=== PATIENT | male | born 1965 | race Two or more races ===

== ENCOUNTER 2024-06-17 12:30 | Inpatient (IN) | payer BC ==
[~2024-06-17] VITALS: Ht 188 cm; Wt 93.0 kg
--- NOTE | 2024-06-17 13:28 | NUR ---
PACIENTE DOLOR ABDOMINAL DESDE HACE 2 SEMANAS. NO NAUSEAS O VOMITOS SE MIDEN Y REPORTAN SIGNOS VITALES Y SE UBICA EN AREA DE FAST TRACK.
[2024-06-17] MEDS ORDERED: FAMOTIDINE/PF 20 MG/2 ML VIAL IV ONE (16:00)
--- NOTE | 2024-06-17 17:09 | NUR ---
PACIENTE ALERTA Y ORIENTADO X 3. SE ORIENTA DE TRATAMIENTO JOHANNA ORDEN MEDICA. REFIERE ENTENDER. SE KENYATTA MUESTRAS Y SE ADMINISTRA MEDICAMENTO CON MEDIDAS ASEPTICAS CORRESPONDIENTES. SE REALIZA EKG Y SE PRESENTA A RN [facility] Fabrizio CROFT.
[2024-06-17 17:26] LABS: HEMATOCRIT 31.4 % (39.0-48.0); MEAN CELL VOLUME 65.9 fL (80.0-100.00); MEAN CORPUSCULAR HEMOGLOBIN 21.1 pg (27.00-32.0); MEAN CORPUSCULAR HGB CONC 31.9 g/dl (32.0-36.0); PLATELET COUNT 426 K/uL (150-450); RED BLOOD COUNT 4.76 M/uL (4.00-6.00); RED CELL DISTRIBUTION WIDTH 16.6 % (11.5-14.5)
[2024-06-17] MEDS ORDERED: AMIODARONE HCL 50 MG/ML AMPUL IV ONE (17:45)
[2024-06-17] MEDS ORDERED: ENOXAPARIN SODIUM 80 MG/0.8 ML SYRINGE SUBCUTANEO ONE (18:00)
[2024-06-17 18:04] LABS: ALBUMIN 3.2 gm/dL (3.4-5.0); BILIRUBIN TOTAL 0.7 mg/dL (0.3-1.2); BILIRUBIN,CONJUGATED 0.21 mg/dL (0.0-0.2); BILIRUBIN,UNCONJUGATED 0.49 mg/dL (0.0-0.6); CALCIUM 8.9 mg/dL (8.5-10.1); CREATININE SERUM 0.82 mg/dL (0.70-1.30); GFR 96.5; GLOBULINA 3.3 G/DL (2.4-3.5); POTASSIUM 4.25 mEq/L (3.5-5.1); TOTAL PROTEIN 6.5 gm/dL (6.4-8.2)
[2024-06-17 18:23] LABS: URINE APPEARANCE Clear; URINE BILIRRUBIN Negative (NEGATIVE); URINE BLOOD Negative; URINE COLOR Yellow; URINE GLUCOSE Negative (NEGATIVE); URINE KETONE Negative (NEGATIVE); URINE LEUKOCYTE Negative; URINE NITRATE Negative; URINE PROTEIN Negative (NEGATIVE); URINE UROBILINOGEN 0.2 E.U./dl
[2024-06-17 18:54] LABS: URINE BACTERIA 1.2 uL (0.0-1933); URINE EPITHELIAL CELLS 0.3 uL (0.0-38.8); URINE RBC 1.3 uL (0.0-20.8); URINE WBC 0.9 uL (0.0-23.2)
[2024-06-17 19:09] LABS: PARTIAL THROMBOPLASTIN TIME 25.6 SECONDS (22.0-34.0); PROTHROMBIN TIME 10.9 SECONDS (9.0-11.5)
[2024-06-17 19:57] LABS: ABG PH 7.465 (7.35-7.45); ABG PO2 93.6 mmHg (80-100); ABG pCO2 29.9 mmHg (35-45); BASE EXCESS -1.5 mmol/l; SaO2 97.7 %
[2024-06-17 19:58] LABS: Tco2 21.9 mmol/l; o2 21 %
[2024-06-17 19:59] LABS: allen test SATISFACTORY; puncture site RADIAL RIGHT
--- NOTE | 2024-06-17 20:00 | NUR ---
SE CONECTA PTE A MONITOR CARDIACO Y OXIMETRIA,SE COMIENZA DRIP DE NEXTERONE.
[2024-06-17] MEDS ORDERED: IPRATROPIUM BROMIDE 0.5 MG/2.5 ML AMPUL.NEB IH SCH (21:39)
[2024-06-17] MEDS ORDERED: FUROsemide 20 MG/2 ML VIAL IV SCH (21:40)
[2024-06-17] MEDS ORDERED: METOPROLOL TARTRATE 25 MG TABLET PO ONE (21:45)
[2024-06-17] MEDS ORDERED: ACETAMINOPHEN 500 MG GEL..CAP PO PRN (21:45)
[2024-06-17] MEDS ORDERED: TEMAZEPAM 15 MG CAPSULE PO ONE (21:45)
[2024-06-18] VITALS (7 sets, daily range): BP systolic 104–150; BP diastolic 72–93; O2SAT 98–100
[2024-06-18] MEDS ORDERED: ENOXAPARIN SODIUM 80 MG/0.8 ML SYRINGE SUBCUTANEO SCH (06:00)
[2024-06-18 07:35] LABS: CHOL HDL RATIO 1.9 (0-5.0)
[2024-06-18 07:36] LABS: TSH 0.787 uIU/mL (0.358-3.74)
[2024-06-18] MEDS ORDERED: FAMOTIDINE/PF 20 MG in 0.9 % SODIUM CHLORIDE 8 ML IV PUSH SCH (09:00)
[2024-06-18] MEDS ORDERED: ENOXAPARIN SODIUM 100 MG/ML SYRINGE SUBCUTANEO SCH ×2 (09:00→21:00)
[2024-06-18] MEDS ORDERED: NICOTINE 21MG/24HR PATCH.TD24 TD SCH (10:05)
[2024-06-18 12:48] LABS: FERRITIN 237.9 NG/ML (26-388); T4 FREE 1.36 NG/ML (0.76-1.46); TSH 1.03 uIU/mL (0.358-3.74)
[2024-06-18] MEDS ORDERED: FUROsemide 20 MG/2 ML VIAL IV SCH (17:00)
[2024-06-19 00:51] VITALS: BP 120/82; O2SAT 98
[2024-06-19 07:22] LABS: HEMOGLOBIN 11.4 g/dL (13-16.00); MEAN CORPUSCULAR HEMOGLOBIN 21.4 pg (27.00-32.0); MEAN CORPUSCULAR HGB CONC 32.4 g/dl (32.0-36.0); PLATELET COUNT 452 K/uL (150-450); RED BLOOD COUNT 5.32 M/uL (4.00-6.00)
[2024-06-19 07:29] LABS: MEAN CELL VOLUME 65.9 fL (80.0-100.00)
[2024-06-19 08:21] VITALS: BP 130/89; O2SAT 96
[2024-06-19] MEDS ORDERED: FUROsemide 40 MG TABLET PO SCH (09:00)
[2024-06-19] MEDS ORDERED: METOPROLOL TARTRATE 25 MG TABLET PO SCH (09:00)
[2024-06-19 16:25] VITALS: BP 127/83; O2SAT 96
[2024-06-19] MEDS ORDERED: CLONAZEPAM 0.5 MG TABLET PO SCH (21:00)
[2024-06-19] MEDS ORDERED: AMIODARONE HCL 200 MG TABLET PO SCH (21:32)
[2024-06-20 00:19] VITALS: BP 132/85; O2SAT 96
[2024-06-20] MEDS ORDERED: METOPROLOL TARTRATE 25 MG TABLET PO SCH (01:00)
[2024-06-20] MEDS ORDERED: METOPROLOL TARTRATE 50 MG TABLET PO SCH (09:00)
[2024-06-20] MEDS ORDERED: APIXABAN 5 MG TABLET PO SCH (09:00)
[2024-06-20 10:10] VITALS: BP 138/91; O2SAT 98
== END 2024-06-20 14:56 | disposition home or self-care (01) | DRG 308 ==
LOC: ER 12:32 → ICU-2 21:44 → SURG 21:44
PROVIDERS: General Practice; Nurse Practitioner Family; ADMIT Student in an Organized Health Care Education/Training Program; ATTEND Student in an Organized Health Care Education/Training Program
PROC: BW21ZZZ Computerized Tomography (CT Scan) of Abdomen and Pelvis (ICD-10-PCS; principal; 2024-06-17)
PROC: B24BYZZ Ultrasonography of Heart with Aorta using Other Contrast (ICD-10-PCS; 2024-06-17)
PROC: 4A12X4Z Monitoring of Cardiac Electrical Activity, External Approach (ICD-10-PCS; 2024-06-18)
DX: I48.91 Unspecified atrial fibrillation (principal); I50.33 Acute on chronic diastolic (congestive) heart failure; J90 Pleural effusion, not elsewhere classified; I50.9 Heart failure, unspecified; R06.02 Shortness of breath; G47.33 Obstructive sleep apnea (adult) (pediatric)

== ENCOUNTER 2024-07-16 14:03 | Emergency (ER) | payer BC ==
[~2024-07-16] VITALS: Ht 188 cm; Wt 92.5 kg
[2024-07-16 14:21] VITALS: O2SAT 100
[2024-07-16] MEDS ORDERED: cloNIDine HCL 0.2 MG TABLET PO STA (15:05)
[2024-07-16] MEDS ORDERED: PROCHLORPERAZINE EDISYLATE 5 MG/ML AMPUL IM STA (15:13)
[2024-07-16] MEDS ORDERED: CLONIDINE HCL 0.1 MG TABLET PO ONE (15:17)
[2024-07-16 16:12] LABS: PH,URINE 7.5 (5.0-8.0); URINE APPEARANCE Cloudy; URINE BILIRRUBIN Negative (NEGATIVE); URINE BLOOD Small; URINE COLOR Yellow; URINE KETONE Trace (NEGATIVE); URINE LEUKOCYTE Negative; URINE NITRATE Negative; URINE PROTEIN 30 (NEGATIVE)
[2024-07-16 16:16] LABS: URINE RBC 118.8 uL (0.0-20.8); URINE WBC 2.2 uL (0.0-23.2)
[2024-07-16 16:18] LABS: MEAN CORPUSCULAR HEMOGLOBIN 20.7 pg (27.00-32.0); MEAN CORPUSCULAR HGB CONC 32.2 g/dl (32.0-36.0); PLATELET COUNT 189 K/uL (150-450); RED BLOOD COUNT 5.98 M/uL (4.00-6.00); RED CELL DISTRIBUTION WIDTH 15.7 % (11.5-14.5)
[2024-07-16 16:24] LABS: MEAN CELL VOLUME 64.4 fL (80.0-100.00)
[2024-07-16 16:24] LABS: URINE BACTERIA 1.2 uL (0.0-1933); URINE EPITHELIAL CELLS 1.1 uL (0.0-38.8); URINE GLUCOSE 100 MG/DL (NEGATIVE)
[2024-07-16 16:25] LABS: HEMATOCRIT 38.5 % (39.0-48.0); HEMOGLOBIN 12.4 g/dL (13-16.00)
[2024-07-16 16:45] LABS: CALCIUM 9.4 mg/dL (8.5-10.1); CREATININE SERUM 0.89 mg/dL (0.70-1.30); GFR 87.79; POTASSIUM 3.56 mEq/L (3.5-5.1)
[2024-07-16] MEDS ORDERED: 0.9 % SODIUM CHLORIDE 1,000 ML IV ONE (17:15)
[2024-07-16 18:09] VITALS: BP 150/80
[2024-07-16 18:40] LABS: CALCIUM 9.3 mg/dL (8.5-10.1); CREATININE SERUM 0.8 mg/dL (0.70-1.30); GFR 99.29; POTASSIUM 3.79 mEq/L (3.5-5.1)
[2024-07-16] MEDS ORDERED: CHLORPROMAZINE HCL 25 MG TABLET PO ONE (19:30)
== END 2024-07-16 20:12 | disposition home or self-care (01) ==
LOC: ER 14:06
PROVIDERS: General Practice
DX: K52.89 Other specified noninfective gastroenteritis and colitis (principal); R11.10 Vomiting, unspecified; I10 Essential (primary) hypertension